=== PATIENT | male | born 1945 | race Caucasian/White ===

== ENCOUNTER 2024-04-13 12:24 | Day surgery (SDC) | payer MEDICARE ==
[2024-04-13 13:26] VITALS: TEMP 98.1
[2024-04-13 14:40] VITALS: BP 137/85; PULSE 76; RESP 16
--- NOTE | 2024-04-14 11:06 | US ---
EXAMINATION TYPE: US FNA thyroid first lesion DATE OF EXAM: 04/13/2024 2:12 PM CLINICAL INDICATION:Male, 78 years old with history of E04.2 NONTOXIC MULTINODULAR GOITER; , COMPARISON: None ATTENDING: Dr. Doc Nieves PROCEDURE: Informed consent was obtained. The risks and benefits of the procedure were discussed with the patien t. The site was marked. Timeout procedure was performed Ultrasound imaging demonstrates bilateral thyroid nodules. The one on the right located too deep for fine-needle aspiration. Left nodule is within appropriate distance for tissue sampling. The patient was prepped, draped in the usual sterile fashion, and locally anesthetized with 1% lidoca ine. Five fine needle aspiration were then performed with a 25 gauge needle. Samples were sent to [facility] pathology department for further analysis. Patient tolerated the procedure without incident and wa s sent home in stable condition. IMPRESSION: Successful ultrasound guided left fine needle aspiration Canceled right FNA due to deep location of nodule. [facility], , 04/14/2024 11:03 AM
== END 2024-04-13 14:40 | disposition home or self-care (01) ==
LOC: RADPROMAIN 12:24
PROVIDERS: ATTEND Internal Medicine Endocrinology, Diabetes & Metabolism
DX: E04.2 Nontoxic multinodular goiter (principal)
CPT/HCPCS: 10005; 36415